=== PATIENT | male | born 1990 | race Caucasian/White ===

== ENCOUNTER 2023-04-28 12:18 | Emergency (ER) | payer BC ==
[~2023-04-28] VITALS: Ht 175.3 cm; Wt 61.2 kg
[2023-04-28 12:21] VITALS: BP_SYST 123
--- NOTE | 2023-04-28 13:13 | NUR ---
ER at bedside examining patient.
--- NOTE | 2023-04-28 13:15 | NUR ---
Urine specimen collected and analyzed in ER. Results given to ER .
[2023-04-28 13:16] LABS: BILIRUBIN,URINE NEGATIVE (NEGATIVE); BLOOD, URINE 2+ (NEGATIVE); CLARITY/URINE CLEAR (CLEAR); COLOR,URINE YELLOW (YELLOW); GLUCOSE,URINE NEGATIVE (NEGATIVE); KETONES,URINE NEGATIVE (NEGATIVE); LEUKOCYTE ESTERASE ,URINE NEGATIVE (NEGATIVE); NITRITE, URINE NEGATIVE (NEGATIVE); PROTEIN URINE NEGATIVE (NEGATIVE); UROBILINOGEN,URINE 0.2 (0.2-1.0)
--- NOTE | 2023-04-28 13:20 | NUR ---
pt bib self from home with RLQ abd pain. pt is afebrile, non tender to touch, abdomen flat bowel sounds present. Pt respirations even and unlabored 5/10 pain gradient. Pt denies NVD. No p medical HX.
[2023-04-28 14:00] LABS: BACTERIA,URINE None Seen /HPF (None Seen); WBC,URINE NONE SEEN /HPF (0-3)
[2023-04-28] MEDS ORDERED: IBUP-1969 PO (16:33)
[2023-04-28 16:47] VITALS: BP_SYST 123
--- NOTE | 2023-04-28 16:47 | NUR ---
Patient given written and verbal discharge instructions and verbalizes understanding. ER MD discussed with patient the results and treatment provided. Patient in stable condition. ID arm band removed. Rx of motrin given. Patient educated on pain management and to follow up with PMD. Opportunity for questions provided and answered. Medication side effect fact sheet provided.
== END 2023-04-28 16:47 | disposition home or self-care (01) ==
LOC: SED 12:18
DX: R31.9 Hematuria, unspecified (principal); R10.31 Right lower quadrant pain; Z79.899 Other long term (current) drug therapy
CPT/HCPCS: 76770; 81000; 99284

== ENCOUNTER 2023-06-16 10:43 | Emergency (ER) | payer BC ==
[~2023-06-16] VITALS: Ht 177.8 cm; Wt 62.1 kg
[~2023-06-16 10:43] MED LIST: IBUP-1969 PO
[2023-06-16 10:50] VITALS: BP_SYST 105; PULSE 92; RESP 18; TEMP 97.3; O2SAT 99
--- NOTE | 2023-06-16 11:45 | NUR ---
DR NAVARRETE CALLED PT TO [facility] FOR EVALUATION, THEN PLACED BACK TO WAITING ROOM
[2023-06-16 11:57] LABS: BASOPHILS # (AUTO) 0.1 K/uL (0.0-0.2); BASOPHILS % (AUTO) 1.5 % (0.0-2.0); EOSINOPHILS % (AUTO) 0.6 % (0.0-4.0); HEMATOCRIT 47.2 % (36-54); HEMOGLOBIN 15.3 g/dL (14.0-18.0); LYMPHOCYTES # (AUTO) 1.7 K/uL (1.0-5.5); LYMPHOCYTES % (AUTO) 27.2 % (20.5-51.5); MEAN CORPUSCULAR HEMOGLOBIN 30 pg (27-31); MEAN CORPUSCULAR HGB CONC 32 % (32-36); MEAN CORPUSCULAR VOLUME 94 fL (79.0-98.0); MONOCYTES # (AUTO) 0.3 K/uL (0.0-1.0); MONOCYTES % (AUTO) 5.1 % (1.7-9.3); NEUTROPHILS # (AUTO) 4.1 K/uL (1.8-7.7); NEUTROPHILS % (AUTO) 65.6 % (40.0-70.0); PLATELET COUNT (AUTO) 270 K/uL (130-430); RED BLOOD CELL COUNT(AUTO) 5.03 MIL/uL (4.2-6.2); RED CELL DISTRIBUTION WIDTH 12.9 % (9.0-15.0); WHITE BLOOD COUNT (AUTO) 6.2 K/uL (4.8-10.8)
[2023-06-16 12:10] LABS: ALBUMIN 4.2 g/dL (3.4-4.8); CALCIUM 9.1 mg/dL (8.4-11.0); CREATININE 1.03 mg/dL (0.55-1.30); TOTAL BILIRUBIN 0.4 mg/dL (0.0-1.0)
[2023-06-16] MEDS ORDERED: OMEP20CA15 PO (13:05)
[2023-06-16 13:16] VITALS: BP_SYST 105; PULSE 76; RESP 16; TEMP 97.7; O2SAT 98
--- NOTE | 2023-06-16 15:51 | NUR ---
Patient given written and verbal discharge instructions and verbalizes understanding. ER MD discussed with patient the results and treatment provided. Patient in stable condition. ID arm band removed. Patient educated on pain management and to follow up with PMD. Pain Scale . Opportunity for questions provided and answered. Medication side effect fact sheet provided.
== END 2023-06-16 15:51 | disposition home or self-care (01) ==
LOC: SED 10:43
DX: K29.70 Gastritis, unspecified, without bleeding (principal); R10.12 Left upper quadrant pain; Z79.899 Other long term (current) drug therapy
CPT/HCPCS: 36415; 76376; 80053; 82150; 83605; 83690; 85025; 99284